=== PATIENT | male | born 1975 | race Caucasian/White ===

== ENCOUNTER → 2016-10-04 | Outpatient (CLI) | payer OTHER ==
--- NOTE | 2016-10-04 11:19 | RAD ---
Indication: Periumbilical hernia repair 3 months ago with continued periumbilical pain. Sonography interrogation of the periumbilical region was performed. No definite hernia or abdominal wall defect is seen. No fluid collection is detected. Impression: No abnormality is identified.
== END | disposition home or self-care (01) ==
LOC: US 10:39
PROVIDERS: ATTEND Orthopaedic Surgery
DX: K43.9 Ventral hernia without obstruction or gangrene (principal)
CPT/HCPCS: 76705